=== PATIENT | female | born 1970 | race Caucasian/White ===

== ENCOUNTER → 2023-12-04 08:58 | Outpatient (REF) | payer OTHER, SELFPAY | LOC: HWRAD 08:58 | PROVIDERS: ATTENDING PHYSICIAN Nurse Practitioner Women's Health; FAMILY PHYSICIAN Family Medicine | DX: N95.0 Postmenopausal bleeding (principal) | CPT/HCPCS: 76830; 76856 ==

== ENCOUNTER 2024-11-30 10:41 | Emergency (ER) | payer OTHER, SELFPAY ==
[2024-11-30 10:44] VITALS: BP 154/88
--- NOTE | 2024-11-30 12:12 | ED.MUSCINJ ---
HPI-Injury
General
Chief Complaint: Musculo-Skeletal Complaint
Time Seen by Provider: 11/30/24 11:25
History of Present Illness-Injury
Initial Injury comments:
54-year-old female without significant past medical history presenting to the emergency department for left fifth digit issue. Notes prior to arrival she was trying to open her coffee creamer and in some mechanism, injured the distal tip of her
digit. Denies numbness or tingling. Denies significant pain, however notes she is not able to completely extend the digit. She is right-handed. Denies additional injuries or concerns
Past History
Past History
ED Past Medical History: None
ED Past Surgical History: None
Social History
Tobacco: Non-smoker
Phy Exam
Physical Exam
Physical Exam:
General: Well-appearing, no clinical signs of dehydration, nontoxic and in no acute distress
HEENT: protecting airway
Neck: appears supple
CV: Normal heart rate
Resp: No accessory muscle use, no increased work of breathing
Abd: no distension
Extremities: Left fifth digit without significant swelling. Distal tip of finger at the DIP is held in flexion, unable to extend. Sensation intact. No significant tenderness to palpation
Neuro: alert, no focal neurologic deficit
: deferred
Rectal: deferred
Psych: Normal affect
Skin: Intact
Injury Course
Orders/Labs/Results
Orders:
Orders
11/30/24 11:25
Hand, Left 3 View [CR Hand - Left Min 3 Views] Urgent
Comment:
Reason For Exam: 5TH FINGER PAIN
MDM/Problems Addressed
MDM/Problems Addressed:
54-year-old female presenting for injury to the left fifth digit. Vital signs on arrival are normal.
On exam patient is resting comfortably, no acute distress or disc. On examination of the left fifth digit, unable to extend at the DIP. X-ray obtained, without significant dislocation. Able to passively extend the digit, however returns to
position of flexion. Concern for tear of the extensor tendon. Patient placed in a splint for hyperextension. Otherwise feel stable for discharge with outpatient orthopedic follow-up. Patient verbalized understanding
*Pulse Oximetry
SaO2: 98
Oxygen Mode of Delivery: Room air
Patient hypoxic: no
*Critical Care Note
Total Time (30-74mins, 75-104mins- exclusive of procedures): Not Applicable
ED Attending Note
-
Portions of this chart may have been created with voice recognition software.� Occasional wrong word or��sound alike� substitutions may have occurred due to the inherent limitations of voice recognition software.
Discharge Plan
Departure
Prescriptions:
No Action
oxycodone-acetaminophen 5 MG/325 MG tablet
1 tab PO Q6HPRN PRN (Reason: pain) Qty: 6 0RF
Referrals:
Lucia Rivera CRNP [Family Provider, General]
Interventions
Interventions:
*Risk Screen - Suicide Last Done: 11/30/24 10:44
*Neglect/Abuse Screening Last Done: 11/30/24 10:44
Discharge Date and Time
Print Language: [place]
== END 2024-11-30 12:30 | disposition home or self-care (01) ==
LOC: EMR 10:41
PROVIDERS: EMERGENCY PHYSICIAN Student in an Organized Health Care Education/Training Program; FAMILY PHYSICIAN Nurse Practitioner Adult Health
DX: S69.92XA Unspecified injury of left wrist, hand and finger(s), initial encounter (principal); X58.XXXA Exposure to other specified factors, initial encounter; Y93.89 Activity, other specified
CPT/HCPCS: 99283; 29130; 73130

== ENCOUNTER → 2025-01-30 14:34 | Outpatient (REF) | payer OTHER, SELFPAY | LOC: HWWDC 14:34 | PROVIDERS: ATTENDING PHYSICIAN Nurse Practitioner Adult Health | DX: Z12.31 Encounter for screening mammogram for malignant neoplasm of breast (principal) | CPT/HCPCS: 77063; 77067 ==